=== PATIENT | female | born 1955 | race Caucasian/White ===

== ENCOUNTER → 2020-04-20 | Day surgery (SDC) | payer MEDICARE, OTHER ==
[~2020-04-20] MED LIST: ALBU6.7H8 IH; CHOL400T36 PO; HYDR12.58 PO; IV RINGERS SOLUTION,LACTATED 1,000 ML IV SCH; LISI-334 PO; MONT10TA80 PO; ONDANSETRON PF 4 MG/2 ML VIAL. IV PRN; PROPOFOL 10,000 MCG/ML (20ML) VIAL IV ONE
[2020-04-20 09:03] VITALS: BP 138/78
--- NOTE | 2020-04-21 17:06 | PATHOLOGY ---
[facility] Accession Number: [id number] . 01 Material submitted: . colon - ASCENDING COLON POLYP. Modifiers: ascending . 02 Diagnosis: Colon biopsy, ascending colon polyp: - Serrated polyp/adenoma. (JPM:brad; 04/21/2020) QMS 04/21/2020 1343 Local . 02 Comment: There is no high grade dysplasia or evidence of malignancy. (JPM:brad; 04/21/2020) . 02 Electronically signed: . Álvaro Graham MD, Pathologist NPI- [id number] . 01 Gross description: . The specimen is received in formalin, labeled "Batres, Delores, ascending colon polyp" and consists of a fragment of copeland-brown tissue measuring 0.3 x 0.3 x 0.1 cm which is entirely submitted in A1. ([facility]; 04/20/2020) JFQ/JFQ 04/20/2020 1746 Local . 02 Pathologist provided ICD-10: D12.2 . 02 CPT . 861999 Specimen Comment: A courtesy copy of this report has been sent to [phone] Specimen Comment: [id number] Specimen Comment: Report sent to / DR BLALARD Performed at: 01 [facility] [address], [place], [place] [id number] MD Mino Jensen MD Phone: [phone] Performed at: 02 [facility] [address] [place], [place] [id number] MD Álvaro Graham MD Phone: [phone]
== END | disposition home or self-care (01) ==
LOC: SURG 07:04
PROVIDERS: ATTEND Internal Medicine Gastroenterology
DX: Z12.11 Encounter for screening for malignant neoplasm of colon (principal); K63.89 Other specified diseases of intestine; D12.2 Benign neoplasm of ascending colon; Z86.010 Personal history of colon polyps; Z79.899 Other long term (current) drug therapy; Z88.8 Allergy status to other drugs, medicaments and biological substances; Z88.1 Allergy status to other antibiotic agents
CPT/HCPCS: 45385; 88305; J2704; U0003-CS

== ENCOUNTER 2021-08-29 03:31 | Emergency (ER) | payer MEDICARE, OTHER ==
[~2021-08-29] VITALS: Ht 167.6 cm; Wt 82.9 kg
[~2021-08-29 03:31] MED LIST changes: -IV RINGERS SOLUTION,LACTATED 1,000 ML IV SCH; -LISI-334 PO; +LISI20TA18 PO; -ONDANSETRON PF 4 MG/2 ML VIAL. IV PRN; -PROPOFOL 10,000 MCG/ML (20ML) VIAL IV ONE
--- NOTE | 2021-08-29 04:26 | PHYS DOC ---
Past History Past Medical History: Arrhythmia, Asthma, Glaucoma Additional Past Surgical Histo: lipoma removal Alcohol Use: Occasionally Adult General Chief Complaint Chief Complaint: TONGUE SWELLING/INJURY HPI HPI Patient is a 65-year-old female presenting for tongue swelling. Reports onset was 2 hours prior to arrival. States she was sleeping when difficulty swallowing caused her to wake up. She felt engorgement and fullness on the left side of her tongue which concerned her and had some voice changes. She subsequently took x1 25 mg p.o. Benadryl and tried to go to bed. She was not able to successfully go back to sleep and became worried and so, she presented to our ER for evaluation. On arrival, patient Cindy states that her swelling has improved. She denies any known inciting event, trauma, mechanism of injury, recent sick contact or travel. Reports only change in baseline health is starting amlodipine 72 hours prior. No history of anaphylaxis or angioedema in the past, has no pertinent family medical history. Review of Systems Review of Systems Fourteen body systems of review of systems have been reviewed. See HPI for pertinent positives and negative responses, other headley all other systems are negative, non-pertinent or non-contributory Current Medications Current Medications Current Medications Medications (Trade) Dose Ordered Sig/Jos Start Time Stop Time Status Last Admin Dose Admin Dexamethasone Sodium Phosphate (Decadron) 10 mg 1X ONCE 08/29/21 04:30 08/29/21 04:31 UNV Diphenhydramine HCl (Benadryl) 25 mg 1X ONCE 08/29/21 04:30 08/29/21 04:31 UNV Famotidine (Pepcid Vial) 20 mg 1X ONCE 08/29/21 04:30 08/29/21 04:31 UNV Allergies Allergies Allergies Coded Allergies Type Severity Reaction Last Updated Verified levofloxacin Allergy Unknown 04/14/20 Yes sulfamethoxazole Allergy Unknown 04/14/20 Yes trimethoprim Allergy Unknown 04/14/20 Yes Physical Exam Physical Exam Constitutional: Well developed, well nourished, no acute distress, non-toxic appearance. Speaking in full sentences and well-appearing on exam HENT: Normocephalic, atraumatic, bilateral external ears normal, oropharynx moist, no oral exudates, tolerating secretions, base of left palate and left side of tongue engorged and swollen versus contralateral side without phonation changes or airway obstruction, nose normal. No cervical lymphadenopathy Eyes: PERRLA, EOMI, conjunctiva normal, no discharge. Neck: Normal range of motion, no tenderness, supple, no stridor. Cardiovascular: Heart rate regular, sinus rhythm, no murmurs rubs or gallops Lungs & Thorax: Bilateral breath sounds clear to auscultation Abdomen: Bowel sounds normal, soft, no tenderness, no masses, no pulsatile masses. Nonsurgical abdomen, no peritoneal signs Skin: Warm, dry, no erythema, no rash. Back: No tenderness, no CVA tenderness. Extremities: No tenderness, no cyanosis, no clubbing, ROM intact, no edema. Neurologic: Alert and oriented X 3, grossly normal motor & sensory function, no focal deficits noted. Psychologic: Affect normal, judgement normal, mood normal. Current Patient Data Vital Signs Vital Signs Date Time Temp Pulse Resp B/P (MAP) Pulse Ox O2 Delivery O2 Flow Rate FiO2 08/29/21 03:44 90 18 168/89 (115) 98 Room Air EKG EKG [] Radiology/Procedures Radiology/Procedures [] Heart Score C/O Chest Pain: No Risk Factors: Risk Factors: DM, Current or recent (<one month) smoker, HTN, HLP, family history of CAD, obesity. Risk Scores: Risk Factors: DM, Current or recent (<one month) smoker, HTN, HLP, family history of CAD, obesity. Course & Med Decision Making Course & Med Decision Making ABCs unremarkable History and physical exam nonconcerning for any emergent or surgical issues Patient has left-sided tongue swelling which is unique. I disclosed all physical exam findings with patient. I doubt symptoms were precipitated by r ecent amlodipine use, not consistent with anaphylaxis and/or angioedema. I question oropharyngeal trauma to the tongue that might have precipitated swelling? Regardless, patient arrived feeling better than when symptoms started after taking 25 mg Benadryl. Famotidine, Benadryl and dexamethasone administered while in ER setting with continued improvement in symptoms. Patient reassessed numerous times with patent airway, unremarkable breathing and continual improvement in tongue swelling. Ultimately, joint decision made to discharge patient with close outpatient follow-up with primary care physician with recommendations for outpatient anti tank missileman referral. Strict return precautions were discussed with good understanding by patient, all questions and concerns addressed prior to ER departure Gabriela Disclaimer Ianon Disclaimer This electronic medical record was generated, in whole or in part, using a voice recognition dictation system. Departure Departure: Impression: Primary Impression: Tongue swelling Disposition: HOME / SELF CARE / HOMELESS Condition: IMPROVED Referrals: RADHA BALLARD (PCP) Additional Instructions: As discussed prior to ER departure, your vitals, history and physical e xamination were nonconcerning for any emergent or surgical issues You were given famotidine, dexamethasone which is a steroid, and Benadryl while in ER setting. All of these medications should help improve your tongue swelling and stop further inflammatory cascade You were monitored in the ER extensively with no obvious deterioration noted. Your symptoms were reported to be improving. We discussed utility of hospital admission but you deferred As such, it is imperative that you contact your primary care physician first thing today once they open to review ER visit and need for close outpatient follow-up within upcoming 72 hours. You might need to follow-up with an allergy clinic for further evaluation as the etiology of your symptoms are unclear If you start to have shortness of breath, facial swelling, recurrent tongue swelling, difficulty swallowing, or any other concerning symptoms you should take your epipen and call 911 to return to the ED. LYLA FELIX DO Aug 29, 2021 04:26
[2021-08-29] MEDS ORDERED: diphenhydrAMINE 50 MG/ML VIAL IVP ONE (04:30)
[2021-08-29] MEDS ORDERED: FAMOTIDINE 20 MG/2 ML VIAL IVP ONE (04:30)
[2021-08-29] MEDS ORDERED: DEXAMETHASONE SOD PHOS 10 MG/ML VIAL. PO ONE (04:30)
[2021-08-29 05:43] VITALS: BP 139/86
== END 2021-08-29 05:42 | disposition home or self-care (01) ==
LOC: ER 03:31
DX: K14.8 Other diseases of tongue (principal); R13.10 Dysphagia, unspecified; J45.909 Unspecified asthma, uncomplicated; Z88.1 Allergy status to other antibiotic agents; Z88.2 Allergy status to sulfonamides
CPT/HCPCS: 96374; 96375; 99284; J1100; J1200; J3490